=== PATIENT | female | born 1990 | race Caucasian/White ===

== ENCOUNTER 2025-04-25 09:16 | Outpatient (CLI) | payer OTHER, SELFPAY ==
--- NOTE | ~2025-04-25 | CT_ITS ---
EXAMINATION: CT facial bones wo con DATE: 04/25/2025 09:36 INDICATION: Jaw swelling right side for 2 years TECHNIQUE: Computed tomography (CT) of the facial bones and maxillofacial region was performed without intravenous contrast. The dose-length product was 281.27 mGy-cm. COMPARISON: None. FINDINGS: Globes and orbits are unremarkable. Mild mucoperiosteal thickening in the paranasal sinuses most prominent in the left maxillary sinus. Mastoid air cells are clear. Mastoid air cavities are clear. External auditory canals are clear. There is extensive dental hardware with significant surrounding artifact which limits evaluation. Submandibular glands are symmetric and unremarkable. Parotid glands are symmetric and unremarkable. Visualized intracranial contents are grossly unremarkable. There are a few nonenlarged and borderline enlarged lymph nodes identified in the visualized soft tissues of the neck. No focal loculated fluid collection identified. No sclerotic or destructive bone lesion. No acute fracture identified. No bony erosions identified. IMPRESSION: 1. Partial opacification of paranasal sinuses. 2. No focal mass or loculated fluid collection identified. 3. There are a few nonenlarged and borderline enlarged lymph nodes identified in the visualized soft tissues of the neck. If symptoms persist or worsen, consider an MRI of the maxillofacial region with and without contrast for further assessment. Reviewed, dictated and finalized at location A. IMPRESSION: 1. Partial opacification of paranasal sinuses. 2. No focal mass or loculated fluid collection identified. 3. There are a few nonenlarged and borderline enlarged lymph nodes identified i n the visualized soft tissues of the neck. If symptoms persist or worsen, consider an MRI of the maxillofacial region with and without contrast for further assessment.
== END 2025-04-25 09:17 | disposition home or self-care (01) ==
LOC: MICIMG 09:18
DX: R22.0 Localized swelling, mass and lump, head (principal)
CPT/HCPCS: 70486